=== PATIENT | male | born 1995 | race Two or more races ===

== ENCOUNTER 2023-12-22 08:55 | Emergency (ER) | payer MEDICAID ==
[~2023-12-22] VITALS: Ht 160 cm; Wt 89.8 kg
[2023-12-22 09:04] VITALS: BP 137/89; TEMP 97.6; O2SAT 99
== END 2023-12-22 09:53 | disposition home or self-care (01) ==
LOC: ER 09:07
DX: S56.812A Strain of other muscles, fascia and tendons at forearm level, left arm, initial encounter (principal); X58.XXXA Exposure to other specified factors, initial encounter; Y93.89 Activity, other specified; Y92.89 Other specified places as the place of occurrence of the external cause; Y99.8 Other external cause status
CPT/HCPCS: 73090-TC